=== PATIENT | female | born 1960 | race Caucasian/White ===

== ENCOUNTER 2020-12-04 08:57 | Outpatient (RCR) | payer MEDICARE, MEDICAID, SELFPAY | END 2020-12-26 14:00 | disposition home or self-care (01) | LOC: HO.WCC 08:57 | PROVIDERS: PCP Internal Medicine; Visit Provider Surgery | DX: I87.313 Chronic venous hypertension (idiopathic) with ulcer of bilateral lower extremity (principal); L97.822 Non-pressure chronic ulcer of other part of left lower leg with fat layer exposed; L97.812 Non-pressure chronic ulcer of other part of right lower leg with fat layer exposed; L03.90 Cellulitis, unspecified; I73.9 Peripheral vascular disease, unspecified; I48.91 Unspecified atrial fibrillation; Z96.653 Presence of artificial knee joint, bilateral | CPT/HCPCS: 29580; 29581; 99212 ==

== ENCOUNTER 2021-07-16 12:10 | Outpatient (RCR) | payer MEDICARE, MEDICAID, SELFPAY | END 2021-08-17 15:36 | disposition home or self-care (01) | LOC: HO.WCC 12:10 | PROVIDERS: Visit Provider Surgery | DX: I87.312 Chronic venous hypertension (idiopathic) with ulcer of left lower extremity (principal); L97.822 Non-pressure chronic ulcer of other part of left lower leg with fat layer exposed; I48.91 Unspecified atrial fibrillation; I73.9 Peripheral vascular disease, unspecified; Z79.899 Other long term (current) drug therapy; Z79.891 Long term (current) use of opiate analgesic | CPT/HCPCS: 11042 ==